=== PATIENT | female | born 1945 | race Caucasian/White ===

== ENCOUNTER 2016-07-10 08:45 | Outpatient (CLI) | payer MEDICARE, OTHER | END 2016-07-10 23:59 | DX: I10 Essential (primary) hypertension (principal) ==

== ENCOUNTER 2017-06-28 15:03 | Outpatient (CLI) | payer MEDICARE, OTHER ==
[2017-06-28 15:28] LABS: CREATININE 0.8 mg/dL (0.4-1.0)
== END 2017-06-28 15:04 | disposition home or self-care (01) ==
LOC: LAB 15:03
PROVIDERS: ATTEND Podiatrist
DX: Z01.818 Encounter for other preprocedural examination (principal)
CPT/HCPCS: 36415; 82565; 85014; 93005

== ENCOUNTER 2017-10-24 08:00 | Outpatient (CLI) | payer MEDICARE, OTHER ==
[2017-10-24 12:47] LABS: BASOPHILS # (AUTO) 0.1 10^3/uL (0.0-0.1); BASOPHILS % (AUTO) 1.1 %; EOSINOPHILS # (AUTO) 0.5 10^3/uL (0.0-0.7); EOSINOPHILS % (AUTO) 5.9 %; HGB - HEMOGLOBIN 14.4 g/dL (12.0-16.0); LYMPHOCYTES # (AUTO) 2.2 10^3/uL (1.5-3.5); LYMPHOCYTES % (AUTO) 28.7 %; MEAN CORPUSCULAR HEMOGLOBIN 31.4 pg (27.0-31.0); MEAN CORPUSCULAR HGB CONC 34.3 g/dL (32.0-36.0); MEAN CORPUSCULAR VOLUME 91.6 fL (81.0-99.0); MEAN PLATELET VOLUME 8.3 fL (7.9-10.8); MONOCYTES # (AUTO) 0.6 10^3/uL (0.0-1.0); MONOCYTES % (AUTO) 7.7 %; NEUTROPHILS # (AUTO) 4.4 10^3/uL (1.5-6.6); NEUTROPHILS % (AUTO) 56.6 %; PLT - PLATELET COUNT 195 10^3/uL (130-450); RED BLOOD COUNT 4.58 10^6/uL (4.20-5.40); RED CELL DISTRIBUTION WIDTH 13.7 % (12.0-15.0); WHITE BLOOD COUNT 7.7 x10^3/uL (4.8-10.8)
[2017-10-24 13:20] LABS: ALBUMIN 4.2 g/dL (3.2-5.5); ALBUMIN/GLOBULIN RATIO 1.3 (1.0-2.2); CALCIUM 9.1 mg/dL (8.5-10.3); CREATININE 0.7 mg/dL (0.4-1.0); TOTAL PROTEIN 7.4 g/dL (6.7-8.2)
== END 2017-10-24 08:01 ==
LOC: LAB.WCP 08:00
PROVIDERS: ATTEND Family Medicine
DX: I10 Essential (primary) hypertension (principal); R94.6 Abnormal results of thyroid function studies; R53.83 Other fatigue
CPT/HCPCS: 36415; 80053; 84443; 85025

== ENCOUNTER 2018-06-05 08:25 | Outpatient (CLI) | payer MEDICARE, OTHER ==
[2018-06-05 13:56] LABS: BASOPHILS # (AUTO) 0.1 10^3/uL (0.0-0.1); BASOPHILS % (AUTO) 1.1 %; EOSINOPHILS # (AUTO) 0.5 10^3/uL (0.0-0.7); EOSINOPHILS % (AUTO) 5.7 %; HGB - HEMOGLOBIN 14.4 g/dL (12.0-16.0); LYMPHOCYTES # (AUTO) 2.7 10^3/uL (1.5-3.5); LYMPHOCYTES % (AUTO) 31.8 %; MEAN CORPUSCULAR HEMOGLOBIN 31.4 pg (27.0-31.0); MEAN CORPUSCULAR HGB CONC 34.2 g/dL (32.0-36.0); MEAN CORPUSCULAR VOLUME 91.8 fL (81.0-99.0); MEAN PLATELET VOLUME 7.9 fL (7.9-10.8); MONOCYTES # (AUTO) 0.6 10^3/uL (0.0-1.0); MONOCYTES % (AUTO) 7.4 %; NEUTROPHILS # (AUTO) 4.6 10^3/uL (1.5-6.6); PLT - PLATELET COUNT 220 10^3/uL (130-450); RED BLOOD COUNT 4.59 10^6/uL (4.20-5.40); RED CELL DISTRIBUTION WIDTH 13.5 % (12.0-15.0); WHITE BLOOD COUNT 8.5 x10^3/uL (4.8-10.8)
[2018-06-05 14:34] LABS: ALBUMIN 4.3 g/dL (3.2-5.5); ALBUMIN/GLOBULIN RATIO 1.2 (1.0-2.2); ALKALINE PHOSPHATASE 106 IU/L (42-121); ALT ALANINE AMINOTRANSFERASE 54 IU/L (10-60); AST ASPARTATE AMINOTRANSFERASE 56 IU/L (10-42); BILIRUBIN,TOTAL 0.3 mg/dL (0.2-1.0); BUN - BLOOD UREA NITROGEN 17 mg/dL (6-20); CALCIUM 9.3 mg/dL (8.5-10.3); CARBON DIOXIDE - CO2 28 mmol/L (21-32); CHLORIDE 106 mmol/L (101-111); CHOL/HDL RATIO 3.5 (<4.4); CHOLESTEROL 176 mg/dL; CREATININE 0.9 mg/dL (0.4-1.0); GFR - MDRD 62 (>89); GLUCOSE 96 mg/dL (70-100); HDL CHOLESTEROL 51 mg/dL; LDL CHOLESTEROL,CALCULATED 101 mg/dL; SODIUM 143 mmol/L (135-145); VLDL CHOLESTEROL 24 mg/dL
== END 2018-06-05 23:59 | disposition home or self-care (01) ==
LOC: LAB.WCP 08:25
PROVIDERS: ATTEND Family Medicine
DX: R74.8 Abnormal levels of other serum enzymes (principal); I10 Essential (primary) hypertension; R94.6 Abnormal results of thyroid function studies
CPT/HCPCS: 36415; 80053; 80061; 83721; 84443; 85025

== ENCOUNTER 2018-06-17 08:07 | Outpatient (CLI) | payer MEDICARE, OTHER ==
--- NOTE | 2018-06-17 10:07 | DEXA Report ---
Reason: POSTMENOPAUSAL STATUS Procedure Date: 06/17/2018 Accession Number: [id number] / [id number] Procedure: DEX - Dexa Spine and/or Hip CPT Code: FULL RESULT: EXAM: Dexa Spine and/or Hip DATE: 06/17/2018 9:45 AM CLINICAL HISTORY: POSTMENOPAUSAL STATUS TECHNIQUE: Dual energy x-ray absorptiometry (DXA) was performed on a Desktime System. Regions measured are the AP Spine, femoral neck, and if needed forearm. COMPARISON: None. In accordance with the International Society for Clinical Densitometry (ISCD) guidelines, data from previous exams may be reanalyzed using current recommendations and techniques. This is done to allow a more accurate basis for comparison with the current study. FINDINGS: The data for the lumbar spine is as follows: BMD (g/cm/cm) T-SCORE Z-SCORE REGION L1 1.665 4.5 5.5 L2 1.654 3.8 4.8 L3 2.166 8.0 9.1 L4 2.271 8.9 9.9 TOTAL 1.955 6.5 7.5 NOTE: All evaluable vertebrae are used for classification The data for the hip is as follows: BMD (g/cm/cm) T-SCORE Z-SCORE REGION Neck 1.054 0.1 1.5 TOTAL 1.215 1.6 2.7 NOTE: The femoral neck or total proximal femur, whichever is lowest, is used for classification. IMPRESSION: THE WHO CLASSIFICATION BASED ON THE INTERNATIONAL REFERENCE STANDARD IS NORMAL. THE FRACTURE RISK IS NOT INCREASED. RECOMMENDATION: Patients with diagnosis of osteoporosis or osteopenia should have regular bone mineral density assessment. For those eligible for Medicare, routine testing is allowed once every 2 years. Testing frequency can be increased for patients who have rapidly progressing disease or for those who are receiving medical therapy to restore bone mass. COMMENT: World Health Organization (WHO) definitions for osteoporosis and osteopenia: NORMAL BMD: T-score at -1.0 or higher, fracture risk is low OSTEOPENIA BMD: T-score between -1.0 and -2.5, fracture risk is increased. OSTEOPOROSIS BMD: T-score at -2.5 or lower, fracture risk is high. National Osteoporosis Foundation recommends: 1. Obtain adequate dietary calcium (at least 1200 mg per day) and vitamin D (400-800 international units per day). 2. Participate, as appropriate, in regular weightbearing and muscle-strengthening exercise. 3. Avoid tobacco use and reduce alcohol and caffeine intake. 4. For more detailed information see the website at www.NOF.org.
== END 2018-06-17 08:08 | disposition home or self-care (01) ==
LOC: DI 08:07
PROVIDERS: ATTEND Family Medicine
DX: Z78.0 Asymptomatic menopausal state (principal)
CPT/HCPCS: 77080

== ENCOUNTER 2018-08-18 09:41 | Outpatient (CLI) | payer MEDICARE, OTHER ==
--- NOTE | 2018-08-19 10:31 | Mammography Report ---
Reason: SCREENING MAMMO Procedure Date: 08/18/2018 Accession Number: [id number] / [id number] Procedure: FABIENNE - Screening Mammo w/Vikram CPT Code: FULL RESULT: EXAM: Screening Mammo w/Vikram DATE: 08/18/2018 10:12 AM CLINICAL HISTORY: Routine screening. No reported personal history of breast cancer. History of breast cancer in maternal grandmother, age unknown. Prior history of benign right breast biopsy. TECHNIQUE: Bilateral CC and MLO views were obtained. COMPARISON: 05/30/2016 through 11/14/2011 FINDINGS: The breasts demonstrate scattered fibroglandular densities bilaterally. Bilateral breasts: There are no suspicious masses, calcifications or areas of distortion. Stable biopsy marker in the 12:00 right breast anterior depth. IMPRESSION: Benign findings RECOMMENDATION: Routine annual screening unless otherwise clinically indicated. BI-RADS CATEGORY 2: Benign findings STANDARD QUALIFYING STATEMENTS: 1. This examination was not reviewed with the aid of Computer-Aided Detection (CAD). 2. A negative or benign imaging report should not preclude biopsy if clinically suspicious findings are present. 3. Dense breasts may obscure an underlying neoplasm. 4. This examination was reviewed with the aid of 3D breast imaging (tomosynthesis).
== END 2018-08-18 09:42 | disposition home or self-care (01) ==
LOC: DI 09:41
DX: Z12.31 Encounter for screening mammogram for malignant neoplasm of breast (principal); Z80.3 Family history of malignant neoplasm of breast
CPT/HCPCS: 77063; 77067

== ENCOUNTER 2019-08-25 08:28 | Outpatient (CLI) | payer MEDICARE, OTHER ==
--- NOTE | 2019-08-25 10:15 | Mammography Report ---
Reason: ROUTINE MAMMO Procedure Date: 08/25/2019 Accession Number: [id number] / [id number] Procedure: MGN - Screening Mammo w/Vikram CPT Code: Final Report FULL RESULT: EXAM: Screening Mammo w/Vikram DATE: 08/25/2019 9:01 AM CLINICAL HISTORY: Nulliparous patient for routine screening. History of benign right breast biopsy. TECHNIQUE: (B) - Bilateral CC and MLO views were obtained. COMPARISON: 08/18/2018, 05/17/2016, 08/02/2014, 05/26/2013 PARENCHYMAL PATTERN: (F) - The breasts demonstrate diffuse fatty replacement bilaterally. FINDINGS: No significant interval change. There are no suspicious masses, calcifications, or areas of distortion. IMPRESSION: Negative examination. BI-RADS category 1. RECOMMENDATION: (ANNUAL) - Recommend routine annual screening mammography. BI-RADS CATEGORY: (1) - Negative. STANDARD QUALIFYING STATEMENTS: 1. This examination was not reviewed with the aid of Computer-Aided Detection (CAD). 2. A negative or benign imaging report should not preclude biopsy if clinically suspicious findings are present. 3. Dense breasts may obscure an underlying neoplasm. 4. This examination was reviewed with the aid of 3D breast imaging (tomosynthesis).
== END 2019-08-25 08:29 | disposition home or self-care (01) ==
LOC: DI.N 08:28
DX: Z12.31 Encounter for screening mammogram for malignant neoplasm of breast (principal)
CPT/HCPCS: 77063; 77067

== ENCOUNTER 2019-10-27 08:43 | Outpatient (CLI) | payer MEDICARE, OTHER ==
--- NOTE | 2019-10-27 17:49 | Ultrasound Report ---
Reason: PERIPHERAL ARTERY DISEASE Procedure Date: 10/27/2019 Accession Number: [id number] / [id number] Procedure: US - Duplex Lwr Ext Arterial Bilat CPT Code: Final Report FULL RESULT: EXAM: BILATERAL LOWER EXTREMITY ARTERIAL DOPPLER ULTRASOUND. EXAM DATE: 10/27/2019 09:54 AM. CLINICAL HISTORY: Peripheral artery disease. COMPARISON: None. TECHNIQUE: Real-time sonographic vascular imaging was performed by the sapphire stylus grinder, utilizing color-flow, Doppler flow, and spectral analysis. Multiple exhibit display representative static images were saved for review. FINDINGS: Right Leg: DO ALL OPERATOR: PSV 96 cm/sec. Triphasic waveform. PSFA: PSV 98 cm/sec. Triphasic waveform. MSFA: PSV 70 cm/sec. Triphasic waveform. DSFA: PSV 76 cm/sec. Triphasic waveform. PFA: PSV 70 cm/sec. Biphasic waveform. POP: PSV 70 cm/sec. Triphasic waveform. BROCK: PSV 49 cm/sec. Biphasic waveform. ASBESTOS HAZARD ABATEMENT WORKER: PSV 53 cm/sec. Biphasic waveform. PER: PSV 63 cm/sec. Triphasic waveform. DPA: PSV 37 cm/sec. Monophasic waveform. Left Leg: DO ALL OPERATOR: PSV 73 cm/sec. Biphasic waveform. PSFA: PSV 78 cm/sec. Triphasic waveform. MSFA: PSV 70 cm/sec. Triphasic waveform. DSFA: PSV 60 cm/sec. Triphasic waveform. PFA: PSV 58 cm/sec. Biphasic waveform. POP: PSV 54 cm/sec. Triphasic waveform. BROCK: PSV 23 cm/sec. Biphasic waveform. ASBESTOS HAZARD ABATEMENT WORKER: PSV 60 cm/sec. Biphasic waveform. PER: PSV 116 cm/sec. Triphasic waveform. DPA: PSV 27 cm/sec. Monophasic waveform. IMPRESSION: No evidence for hemodynamically significant stenosis. See above. RADIA
== END 2019-10-27 08:44 | disposition home or self-care (01) ==
LOC: DI 08:43
PROVIDERS: ATTEND Family Medicine
DX: I73.9 Peripheral vascular disease, unspecified (principal)
CPT/HCPCS: 93925

== ENCOUNTER 2020-01-26 16:45 | Observation (INO) | payer MEDICARE, OTHER ==
--- NOTE | 2020-01-26 17:17 | ED Physician Documentation ---
History of Present Illness - Stated complaint Stated Complaint: SLURRED SPEECH - Chief complaint Chief Complaint: General - Additonal information Additional information: 74-year-old female presents to the emergency department for evaluation of slurred speech that was noted at approximately 9 this morning. She lives alone and does not remember the last time that she spoke normally but when her friend picked her up to go into town they both noted that her speech was slurred and she felt like her tongue was fat. She had no facial droop, no arm or leg weakness, she has had no fevers or headaches. She does report that 2 nights ago she did have some chest pain. She has no history of previous CVA, TIA. in addition to slurred speech she does report some difficulty with word finding Past medical history most significant for hypertension and rheumatoid arthritis. Meds include amlodipine, methotrexate and Plaquenil. She is a non-smoker. Denies daily alcohol use. No illicit substance use. Review of Systems Constitutional: denies: Fever, Chills Eyes: denies: Loss of vision, Decreased vision Ears: denies: Loss of hearing, Ear pain Nose: denies: Rhinorrhea / runny nose, Congestion Throat: denies: Dental pain / toothache, Oral lesions / sores Cardiac: reports: Chest pain / pressure. denies: Palpitations, Pedal edema, Calf pain Respiratory: denies: Dyspnea, Cough, Hemoptysis, Wheezing GI: denies: Abdominal Pain, Abdominal Swelling, Nausea, Vomiting, Constipation, Diarrhea : denies: Dysuria, Frequency Skin: denies: Rash, Lesions Musculoskeletal: denies: Neck pain, Back pain Neurologic: reports: Difficulty speaking. denies: Focal weakness, Numbness, Syncope, Seizure, Confused, Altered mental status, Headache, Head injury Psychiatric: reports: Depressed, Suicidal PD PAST MEDICAL HISTORY - Past Medical History Musculoskeletal: Rheumatoid arthritis - Allergies Allergies/Adverse Reactions: Allergies Allergy/AdvReac Type Severity Reaction Status Date / Time Sulfa (Sulfonamide Allergy Hives Verified 01/26/20 16:54 Antibiotics) PD ED PE EXPANDED - General General: Alert, No acute distress, Well developed/nourished. No: Anxious, In Pain, In distress - HEENT HEENT: Atraumatic, PERRL, EOMI - Eyes Eyes: PERRL, Normal accommodation - Neck Neck: Supple w/out meningeal sx, No tenderness - Cardiac Cardiac: Regular Rate, Radial strong equal, Femoral strong equal, Pedal strong equal, Cap refill < 2 sec. No: Murmur Present - Respiratory Respiratory: Clear to ausultation micaela. No: Distress, Labored - Abdomen Abdomen: Normal Bowel sounds. No: Tender to palpation - Neuro Neuro: Alert and Oriented X 3, CN deficit (hypoglossal; slurred speech), PERRL, Cerebellar nl, Normal gait, Normal finger nose. No: Weakness, Abnormal sensation, CNII-XII intact, Dyscongugate gaze, Nystagmus, Normal speech - GCS Eye Opening: Spontaneous Motor: Obeys Commands Verbal: Oriented Total: 15 Results - Vitals Vitals: Vital Signs - 24 hr 01/26/20 01/26/20 01/26/20 16:54 17:10 17:37 Temperature 36.8 C Heart Rate 75 67 66 Respiratory 16 15 14 Rate Blood Pressure 182/96 H 148/75 H 108/83 H O2 Saturation 95 97 97 01/26/20 01/26/20 18:06 18:30 Temperature Heart Rate 59 L 62 Respiratory 17 18 Rate Blood Pressure 139/63 H 139/63 H O2 Saturation 98 96 Oxygen O2 Source Room air - EKG (time done) 1649 Rate: Rate (enter#) (75) Rhythm: NSR [place]: Normal Intervals: Normal MO QRS: LVH Ischemia: Normal ST segments, Q waves (anterior leads; ? LVH) Compare to prior EKG: Unchanged from prior EKG Computer interpretation: Agree with computer - Labs Labs: Laboratory Tests 01/26/20 01/26/20 01/26/20 17:10 17:10 17:35 WBC 9.8 RBC 4.48 Hgb 14.2 Hct 40.8 MCV 91.1 MCH 31.7 H MCHC 34.8 RDW 13.2 Plt Count 215 MPV 9.7 Neut # (Auto) 6.3 Lymph # (Auto) 2.4 [place] # (Auto) 0.6 Eos # (Auto) 0.4 Baso # (Auto) 0.1 Absolute Nucleated RBC 0.00 Nucleated RBC % 0.0 Sodium 135 Potassium 3.7 Chloride 100 L Carbon Dioxide 26 Anion Gap 9.0 BUN 16 Creatinine 0.7 Estimated GFR (MDRD) 82 L Glucose 102 H Calcium 9.4 Total Bilirubin 0.6 AST 37 ALT 30 Alkaline Phosphatase 70 Troponin I High Sens 3.5 Total Protein 7.3 Albumin 4.5 Globulin 2.8 Albumin/Globulin Ratio 1.6 Lipase 38 - Rads (name of study) CXR Radiology: Final report received (sNo acute cardiopulmonary finding) CT angio neck Radiology: Final report received (No hemodynamically significant stenosis can be seen within the arteries of the neck. Relatively prominent cervical spine degenerative changes noted.) CT angio head Radiology: Final report received (Focal moderate grade stenosis within the superior cavernous portion of the right internal carotid artery no other stenosis occlusion or aneurysm. No acute intracranial findings on the noncontrast study) PD MEDICAL DECISION MAKING - ED course Complexity details: reviewed old records, reviewed results, re-evaluated patient, considered differential, d/w patient ED course: 74-year-old female presents to the emergency department with 8 hours of slurred speech and some difficulty with word finding. She is well outside the 4-hour window. However we will proceed with emergent CT imaging to include angiography of her head and neck. Screening labs are also pending. - ECG is noted to be sinus rhythm. No fibrillation or ectopy. High-sensitivity troponin is negative. The rest of her screening labs are also unremarkable. - CT angios of the head and neck shows no obvious bleeds or worrisome findings. There is a very focal moderate-grade stenosis of the right ICA near the cavernous section of the ICA. This was discussed with Dr. Ricardo Manning the nighttime hospitalist. He has agreed to admit her under observation for CVA. He has asked that I have the images forwarded to [facility] and he will speak with neurology there but is not requesting me to do that at this time. - Over the time that the patient has been here in the emergency department I do note that her slurred speech has improved somewhat. She agrees to admission. In addition she has no other focal neuro deficits. No facial droop ataxia arm or leg weakness. I have ordered 325 of aspirin. Further care to be dictated by the nighttime hospitalist Departure - Departure Disposition: ED Place in Observation Clinical Impression: Slurred speech Condition: Serious
[2020-01-26 17:18] LABS: BASOPHILS # (AUTO) 0.1 10^3/uL (0.0-0.1); BASOPHILS % (AUTO) 0.7 %; EOSINOPHILS # (AUTO) 0.4 10^3/uL (0.0-0.7); EOSINOPHILS % (AUTO) 3.9 %; HGB - HEMOGLOBIN 14.2 g/dL (12.0-16.0); LYMPHOCYTES # (AUTO) 2.4 10^3/uL (1.5-3.5); LYMPHOCYTES % (AUTO) 24.1 %; MEAN CORPUSCULAR HEMOGLOBIN 31.7 pg (27.0-31.0); MEAN CORPUSCULAR HGB CONC 34.8 g/dL (32.0-36.0); MEAN CORPUSCULAR VOLUME 91.1 fL (81.0-99.0); MEAN PLATELET VOLUME 9.7 fL (7.9-10.8); MONOCYTES # (AUTO) 0.6 10^3/uL (0.0-1.0); MONOCYTES % (AUTO) 6.3 %; NEUTROPHILS # (AUTO) 6.3 10^3/uL (1.5-6.6); NEUTROPHILS % (AUTO) 64.6 %; PLT - PLATELET COUNT 215 10^3/uL (130-450); RED BLOOD COUNT 4.48 10^6/uL (4.20-5.40); RED CELL DISTRIBUTION WIDTH 13.2 % (12.0-15.0); WHITE BLOOD COUNT 9.8 x10^3/uL (4.8-10.8)
[2020-01-26] MEDS ORDERED: IOVERSOL 320 100 ML VIAL IVP ONE ×2 (17:34→18:02)
[2020-01-26 18:04] LABS: ALBUMIN 4.5 g/dL (3.2-5.5); ALBUMIN/GLOBULIN RATIO 1.6 (1.0-2.2); BILIRUBIN,TOTAL 0.6 mg/dL (0.2-1.0); CALCIUM 9.4 mg/dL (8.5-10.3); CREATININE 0.7 mg/dL (0.4-1.0); TOTAL PROTEIN 7.3 g/dL (6.7-8.2)
--- NOTE | 2020-01-26 18:13 | CT Report ---
PROCEDURE: ANGIO HEAD W/WO INDICATIONS: L sided facial droop CONTRAST: IV CONTRAST: Optiray 320 ml: 80 PO CONTRAST: *NO PO CONTRAST TECHNIQUE: Precontrast 4.5 mm thick angled axial sections acquired from the foramen magnum to the vertex. Afte r the administration of intravenous contrast, 1 mm thick sections acquired through the [place] of [place] is. Postcontrast 4.5 mm thick sections then re-acquired from the foramen magnum to the vertex. 3-di mensional klivkwz-zqnwsllgr-fpvlitmgzo (MIP) and/or volume rendering reformats were acquired of the c entral intracranial vasculature. For radiation dose reduction, the following was used: automated ex posure control, adjustment of mA and/or kV according to patient size. COMPARISON: None. FINDINGS: Image quality: Excellent. Anterior circulation: A focal moderate grade stenosis is present within the superior cavernous portio n of the right internal carotid artery (series 13/image 38). The bilateral internal carotid arteries demonstrate otherwise normal course and caliber. The flow within the paired anterior cerebral arterie s is normal and symmetric. The flow within the middle cerebral arteries is normal and symmetric. Th e anterior communicating artery is seen. No aneurysms are seen. Posterior circulation: Visualized portions of the vertebral arteries demonstrate normal caliber, and join to form a normal appearing basilar artery. Flow within the posterior cerebral arteries is norm al and symmetric. No aneurysms are seen. CSF spaces: Ventricles are normal in size and shape. Basal cisterns are patent. No extra-axial flu id collections. Brain: No midline shift. No intracranial bleeds or masses. Cavazos-white matter interface appears int act. Skull and face: Calvarium and facial bones appear intact, without suspicious lesions. Sinuses: Visualized sinuses and mastoids are clear. IMPRESSION: 1. Focal moderate grade stenosis within the superior cavernous portion of the right internal carotid artery. No other stenosis, occlusion, or aneurysm. 2. No acute intracranial findings on the noncontrast study. Reviewed by: Danielle Wright MD on 01/26/2020 6:12 PM PDT Approved by: Danielle Wright MD on 01/26/2020 6:12 PM PDT Station ID: [id number]
--- NOTE | 2020-01-26 18:14 | XRAY Report ---
PROCEDURE: Chest 1 View X-Ray INDICATIONS: Chest Pain TECHNIQUE: One view of the chest was acquired. COMPARISON: None FINDINGS: Surgical changes and devices: None. Lungs and pleura: No pleural effusions or pneumothorax. Lungs are clear. Mediastinum: Mediastinal contours appear normal. Heart size is normal. Bones and chest wall: No suspicious bony lesions. Overlying soft tissues appear unremarkable. IMPRESSION: No acute cardial pulmonary findings. Reviewed by: Danielle Wright MD on 01/26/2020 6:13 PM PDT Approved by: Danielle Wright MD on 01/26/2020 6:13 PM PDT Station ID: [id number]
--- NOTE | 2020-01-26 18:18 | CT Report ---
PROCEDURE: ANGIO NECK W INDICATIONS: L sided facial droop, L neck pain CONTRAST: IV CONTRAST: Optiray 320 ml: 80 PO CONTRAST: *NO PO CONTRAST TECHNIQUE: After the administration of intravenous contrast, 1.5 mm axial sections acquired from the aortic arch to the [place] of [place]. Coronal 3-D maximum intensity projection (MIP) and/or volume rendering ref ormats were then performed. For radiation dose reduction, the following was used: automated exposur e control, adjustment of mA and/or kV according to patient size. COMPARISON: Correlation is made with the accompanying head CT angiogram, 01/26/2020 FINDINGS: Image quality: Excellent. Carotid system: The great vessels demonstrate a conventional anatomy as they arise from the aortic a rch. The origins of the common carotid arteries appear patent. The common carotid arteries demonstr ate normal calibers and courses. The bifurcation regions appear normal bilaterally. The internal ca rotid arteries demonstrate normal caliber and course. Posterior circulation: The origins of the vertebral arteries appear patent. The more superior porti ons of the vertebral arteries demonstrate normal course and caliber. They join to form a normal appe aring basilar artery. Soft tissues: Visualized neck soft tissues demonstrate no suspicious abnormalities. The thyroid gla nd is normal in size. Bones: No suspicious bony lesions. Visualized cervical spine appears normally aligned. 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 Moderate to prominent cervical spine degenerative changes are seen, with at least moderate disc space narrowing at C4-C5 with moderate to severe disc space narrowing at C5-C6 and C6-C7. Endplate irregul arity and sclerosis are seen, which are most prominent at C5-C6. IMPRESSION: No hemodynamically significant stenosis can be seen within the arteries of the neck. Relatively prominent cervical spine degenerative changes noted. The estimate of stenosis included in the report of the imaging study was calculated using the NASCET method Reviewed by: Dayton Waterman MD on 01/26/2020 5:17 PM YENNI Approved by: Dayton Waterman MD on 01/26/2020 5:17 PM YENNI Station ID: [id number]
[2020-01-26] MEDS ORDERED: ASPIRIN CHEW 81 MG TABLET PO STA (18:27)
[2020-01-26] MEDS ORDERED: ONDANSETRON 4 MG/2 ML VIAL IVP PRN (19:12)
[2020-01-26] MEDS ORDERED: ACETAMINOPHEN 325 MG TABLET PO PRN (19:12)
[2020-01-26] MEDS ORDERED: SODIUM CHLORIDE FLUSH 0.9% 10 ML SYRINGE IVP PRN (19:12)
--- NOTE | 2020-01-26 19:21 | HISTORY & PHYSICAL EXAMINATION ---
Chief Complaint - Chief Complaint Chief Complaint: Slurred speech. History of Present Illness - Admitted From Admitted From:: Home - History Obtained From Records Reviewed: Yes History obtained from: Patient, ER Physician, EMR - History of Present Illness HPI Comment/Other: This is a very pleasant 74-year-old female with a past medical history signi ficant for rheumatoid arthritis and hypertension who presents today after she noticed slurred speech at around 9 AM this morning. She is unsure of when her symptoms started as she lives alone but when she spoke with her neighbor at 9 AM, she realized her speech was slurred. She went about with her errands and she drove to [facility] and return to [place] in the afternoon when she called her primary care provider who asked her to go to emergency department for further evaluation. She states her slurred speech has improved but is still present. She reports no headache, blurry vision, any upper or lower extremity weakness. She denies any numbness or tingling. She reports no prior history of stroke or TIA. She does not take a baby aspirin. She only takes amlodipine for hypertension as well as methotrexate and hydroxychloroquine for rheumatoid arthritis. She took her methotrexate yesterday which she takes on a weekly basis. She is a non-smoker. She reports no prior history of hyperlipidemia or diabetes. In the emergency department, she underwent a CTA of the head which showed a moderate focal stenosis of the superior cavernous portion of the right internal carotid artery. CT of the head was unremarkable. CTA of the neck was also unremarkable. Her EKG reveals a sinus rhythm. Given the above findings, medicine was consulted for admission. I did discuss goals of care the patient she would like to be a full code. She stated she would not want prolonged mechanical ventilation if she were to have a poor prognosis. 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 She has 1 sister who had a stroke. Her 3 other sisters are healt hy. Living arrangement: At home Living Situation: Alone Social History Notes: She lives at home alone but her very close friend lives in a condo next-door. She is a non-smoker. She drinks 1-2 alcoholic beverages a week. 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 - POLST Patient has POLST: No Meds/Allgy - Allergies Allergies/Adverse Reactions: Allergies Allergy/AdvReac Type Severity Reaction Status Date / Time Sulfa (Sulfonamide Allergy Hives Verified 01/26/20 16:54 Antibiotics) Review of Systems - Constitutional Constitutional: denies: Fatigue, Fever, Chills, Malaise, Weakness, Poor appetite - Eyes Eyes: denies: Blurred vision, Vision loss - Ears, Nose & Throat Ears, Nose & Throat: denies: Nasal discharge, Nasal congestion, Sore throat - Cardiovascular Cariovascular: denies: Palpitations, Chest pain, Lightheadedness, Exertional dyspnea, Decr. exercise tolerance - Respiratory Respiratory: denies: Cough, SOB at rest, SOB with exertion - Gastrointestinal Gastrointestinal: denies: Abdominal pain, Nausea, Vomiting - Genitourinary Genitourinary: denies: Dysuria, Frequency, Urgency, Hematuria - Musculoskeletal Musculoskeletal: denies: Muscle pain, Limited range of motion, Muscle weakness - Integumentary Integumentary: denies: Rash - Neurological Neurological: reports: Slurred speech. denies: General weakness, Focal weakness, Headache, Dizziness, Numbness, Memory problems, Pre-existing deficit, Abnormal gait, Incoordination - Hematologic/Lymphatic Hematologic/Lymphatic: denies: Bleeding tendencies - All Other Systems All Other Systems: reports: Reviewed and negative Prior Level of Functionality: She is independent with her ADL's. Exam - Vital Signs Reviewed Vital Signs: Yes Vital Signs: Vital Signs x48h Temp Pulse Resp BP Pulse Ox 01/26/20 18:30 62 18 139/63 H 96 01/26/20 18:06 59 L 17 139/63 H 98 01/26/20 17:37 66 14 108/83 H 97 01/26/20 17:10 67 15 148/75 H 97 01/26/20 16:54 36.8 C 75 16 182/96 H 95 - Physical Exam General Appearance: positive: No acute distress, Alert Eyes Bilateral: positive: Normal inspection, Conjunctivae nml ENT: positive: ENT inspection nml Neck: positive: Nml inspection Respiratory: positive: No respiratory distress. negative: Wheezes, Rales Cardiovascular: positive: Regular rate & rhythm, No murmur. negative: Tachycardia, Bradycardia, Systolic murmur Abdomen: positive: Non-tender, No distention. negative: Tenderness, Guarding, Rebound Skin: positive: No rash, Warm, Dry Extremities: positive: Full ROM, No pedal edema Neurologic/Psychiatric: positive: Oriented x3, CN's nml (2-12), Motor nml, Sensation nml, Slurred/abnml speech, Other (No dysmetria noted. No pronator drift.). negative: Disoriented to person, Disoriented to place, Disoriented to time, Facial droop Conclusion/Plan - Problem List (1) Stroke-like symptoms Conclusion/Plan: She presents with slurred speech with an unknown last normal. Her symptoms are improving but persists. No other focal deficits on exam. CT of the head was unremarkable. CTA of the head showed focal moderate stenosis of the superior cavernous portion of the right internal carotid artery. CTA of the neck was unremarkable. She was given aspirin in the emergency department. We will continue her on aspirin 81 mg daily as well as Lipitor 40 mg in the evening. Will allow for permissive hypertension given her ongoing symptoms. Will obtain echocardiogram. Obtain MRI. Monitor on telemetry. Check A1c and lipid panel. Neurochecks. I did speak with the on-call neurologist discussed the patient's presentation and the CTA findings. They felt it was reasonable to start the patient on 75 mg of Plavix daily for 3 weeks ff her MRI shows lacunar strokes or a very small infarct. If there was concern for an embolic stroke or very large stroke or petechial hemorrhages then they feel that monotherapy with aspirin would be appropriate and to look for atrial fibrillation. At this time, we will keep her on aspirin 81 mg daily and follow-up with MRI tomorrow and will start her on Plavix based off of those findings. (2) Hypertension Conclusion/Plan: We will hold her home antihypertensives to allow for permissive hypertension given she has ongoing symptoms and this could be a stroke not just TIA. (3) Rheumatoid arthritis Conclusion/Plan: Stable. We will continue home medications. - Lab Results Lab results reviewed: Yes Fish Bones: 01/26/20 17:10 01/26/20 17:35 - Diagnostic Imaging Results Diagnostic Imaging Results: positive: Final report reviewed - EKG Results EKG Interpreted Independently: Yes EKG Comparison: Unchanged from prior EKG EKG Findings: Sinus rhythm without ST segment changes. Core Measures - Anticipated LOS I expect patient to be DC'd or transferred within 96 hours.: Yes - Issues Hospital Issues and Management Plan: 74-year-old female with a history of hypertension and her arthritis presents with slurred speech that is persistent. Will place in observation for TIA/stroke work-up including echocardiogram, telemetry, MRI. - DVT/VTE - Prophylaxis VTE/DVT Device ordered at admit?: Yes VTE/DVT Prophylaxis med ordered at admit?: Yes
[2020-01-26 19:38] LABS: CHOLESTEROL 145 mg/dL; HDL CHOLESTEROL 48 mg/dL; LDL CHOLESTEROL,CALCULATED 78 mg/dL; LDL/HDL RATIO 1.6 (<4.4); VLDL CHOLESTEROL 19 mg/dL
[2020-01-26] MEDS ORDERED: ATORVASTATIN 40 MG TABLET PO SCH (21:00)
[2020-01-26] MEDS: SODIUM CHLORIDE FLUSH 0.9% 10 ML SYRINGE IVP SCH (23:33)
[2020-01-27 05:45] LABS: BASOPHILS # (AUTO) 0.1 10^3/uL (0.0-0.1); BASOPHILS % (AUTO) 0.8 %; EOSINOPHILS # (AUTO) 0.4 10^3/uL (0.0-0.7); EOSINOPHILS % (AUTO) 5.6 %; HGB - HEMOGLOBIN 13.7 g/dL (12.0-16.0); LYMPHOCYTES # (AUTO) 2.3 10^3/uL (1.5-3.5); LYMPHOCYTES % (AUTO) 29.9 %; MEAN CORPUSCULAR HEMOGLOBIN 31.9 pg (27.0-31.0); MEAN CORPUSCULAR HGB CONC 34.8 g/dL (32.0-36.0); MEAN CORPUSCULAR VOLUME 91.6 fL (81.0-99.0); MEAN PLATELET VOLUME 9.6 fL (7.9-10.8); MONOCYTES # (AUTO) 0.6 10^3/uL (0.0-1.0); MONOCYTES % (AUTO) 7.9 %; NEUTROPHILS # (AUTO) 4.3 10^3/uL (1.5-6.6); NEUTROPHILS % (AUTO) 55.4 %; PLT - PLATELET COUNT 210 10^3/uL (130-450); RED CELL DISTRIBUTION WIDTH 13.2 % (12.0-15.0); WHITE BLOOD COUNT 7.7 x10^3/uL (4.8-10.8)
[2020-01-27 05:57] LABS: HEMOGLOBIN A1C 0.49 g/dL; HEMOGLOBIN A1C % 5.4 % (4.6-6.2)
[2020-01-27 05:58] LABS: CALCIUM 9.4 mg/dL (8.5-10.3); CREATININE 0.8 mg/dL (0.4-1.0); MAGNESIUM 2.3 mg/dL (1.7-2.8); PHOSPHORUS 4.4 mg/dL (2.5-4.6)
[2020-01-27] MEDS: SODIUM CHLORIDE FLUSH 0.9% 10 ML SYRINGE IVP SCH ×2 (08:19→15:34)
[2020-01-27] MEDS ORDERED: HYDROXYCHLOROQUINE 200 MG TABLET PO SCH (09:00)
[2020-01-27] MEDS ORDERED: ASPIRIN EC 81 MG TABLET PO SCH (09:00)
[2020-01-27] MEDS ORDERED: ENOXAPARIN 40 MG/0.4 ML SYRINGE SUBQ SCH (09:00)
[2020-01-27] MEDS ORDERED: CLOPIDOGREL 75 MG TABLET PO SCH (09:00)
--- NOTE | 2020-01-27 09:07 | PHARMACY PROGRESS NOTE ---
- Best Possible Medication History Admit Date and Time: 01/26/201911 Processed by: Pharmacy Patient Interview: Completed Secondary Source(s): Pharmacy records (PATIENT INTERVIEWED BY FABRIC DESIGNER. PATIENT ABLE TO CONFIRM HOME MEDICATIONS ), Insurance records As the person ultimately responsible for medication therapy, providers are able to order a medication from an existing home medication list in [facility] via the "Reconcile Routine" prior to Confirmation of that medication by it support manager. Such practice is discouraged except when the physician, in their clinical judgment, deems that a medical need exists for a medication without regard to previous use.
--- NOTE | 2020-01-27 12:45 | MRI Report ---
PROCEDURE: Brain W/O INDICATIONS: Neuro deficit. TECHNIQUE: Noncontrast axial T1 spin echo, axial T2 fast spin echo, sagittal and axial FLAIR, coronal T2 fast sp in echo, axial gradient echo, axial diffusion and ADC through the brain. COMPARISON: Correlation is made with head CT and head CT angiogram and neck CT angiogram 01/26/2020. FINDINGS: Image quality: Excellent. CSF Spaces: Basal cisterns are patent. No extra-axial fluid collections. Ventricles are normal in size and shape. Brain: Small foci of abnormal diffusion weighted hyperintensity can be seen within the left basal ga nglia, as on series 906 images 14 and 15. There is associated dark signal seen on the accompanying AD C maps. There is developing increased T2-weighted signal seen at this site. No intracranial masses or hemorrhage. Cavazos/white matter interface is normal. Brainstem appears norm al. Brain parenchymal volume loss is seen. Chronic small vessel ischemic changes are seen. No chron ic ischemic insults. Normal intravascular flow voids are present. Skull and face: Calvarium has normal marrow signal. Orbits appear normal. Sinuses: Moderate mucosal thickening is seen involving the left inferior maxillary sinus. Sinuses an d mastoids are otherwise clear. IMPRESSION: Subacute infarction can be seen involving the left basal ganglia. Age-appropriate brain parenchymal volume loss and chronic small vessel ischemic change can be seen. Reviewed by: Dayton Waterman MD on 01/27/2020 11:43 AM YENNI Approved by: Dayton Waterman MD on 01/27/2020 11:43 AM YENNI Station ID: [id number]
--- NOTE | 2020-01-27 14:47 | Discharge Plan ---
Discharge Plan Problem Reviewed?: Yes Disposition: Home Health Service Condition: Stable Prescriptions: Aspirin EC [Ecotrin] 81 mg PO DAILY #21 tablet Atorvastatin [Lipitor] 40 mg PO QPM #30 tablet Clopidogrel [Plavix] 75 mg PO DAILY #21 tablet Diet: Regular Activity Restrictions: Activity as Tolerated Shower Restrictions: No (fall precaution) Instruction Topics: Clopidogrel Bisulfate Oral tablet, Aspirin ASA chewable tablets, Atorvastatin tablets, Stroke Ischemic, Aphasia Health Concerns: stroke Plan of Treatment: you were found to have slurred speech without other focal neurological deficits. MRI of brain show you have subacute left brain small stroke. Neurologist recommend you have three weeks of Aspirin, Plavix and Lipitor, then switch to Aspirin and Lipitor. Speech therapy is arranged to help you as well. Care Goals: stabilization and improvement of your medical conditions Assessment: discussed the care plan with you, you understood and agreed. Additional Instructions or Follow Up instructions: you may followup with your PCP in one week, followup with neurologist as out-pt. Should your symptoms return or worsen, you may present ER or call 911 for help. Follow-Up Care: Home Health - No Smoking: If you smoke, Please STOP! Call for help. Follow-up with: Andi Soares DO [Primary Care Provider] -
--- NOTE | 2020-01-27 14:56 | DISCHARGE SUMMARY ---
Discharge Summary Admit Date: 01/26/20 Discharge Date: 01/27/20 Discharging Provider: Beni delatorre Primary Care Provider: Dr. Dominique Soares Condition at Discharge: Stable Discharge Disposition: Home Health Service Discharge Facility Name: home - DIAGNOSES Discharge Diagnoses with Status of Each Condition: (1) Stroke MRI of the brain show patient has small subacute Stroke involving left basilar ganglia. She still presents with slurred speech but improved per pt's report. Home speech therapist was arranged for patient. Patient has no other focal neuro deficits. Per neurologist recommendation, patient was prescribed aspirin and Plavix and Lipitor for 3 weeks, then switch to aspirin and Lipitor .other imaging studies including CT of the head, CTA of brain and neck, echo are unremarkable except moderate grade stenosis of right internal carotid, Discussed above information with patient, patient understand. (2) Hypertension stable (3) Rheumatoid arthritis Stable. continue home medications. - [facility] History of Present Illness: refer from Dr. Rodriguez's HPI on 01/26/2020 This is a very pleasant 74-year-old female with a past medical history significant for rheumatoid arthritis and hypertension who presents today after she noticed slurred speech at around 9 AM this morning. She is unsure of when her symptoms started as she lives alone but when she spoke with her neighbor at 9 AM, she realized her speech was slurred. She went about with her errands and she drove to [facility] and return to [place] in the afternoon when she called her primary care provider who asked her to go to emergency department for further evaluation. She states her slurred speech has improved but is still present. She reports no headache, blurry vision, any upper or lower extremity weakness. She denies any numbness or tingling. She reports no prior history of stroke or TIA. She does not take a baby aspirin. She only takes amlodipine for hypertension as well as methotrexate and hydroxychloroquine for rheumatoid arthritis. She took her methotrexate yesterday which she takes on a weekly basis. She is a non-smoker. She reports no prior history of hyperlipidemia or diabetes. In the emergency department, she underwent a CTA of the head which showed a moderate focal stenosis of the superior cavernous portion of the right internal carotid artery. CT of the head was unremarkable. CTA of the neck was also unremarkable. Her EKG reveals a sinus rhythm. Given the above findings, medicine was consulted for admission. I did discuss goals of care the patient she would like to be a full code. She stated she would not want prolonged mechanical ventilation if she were to have a poor prognosis. - HOSPITAL COURSE Hospital Course: Patient was admitted for slurring speech for TIA and stroke evaluation and treatment. MRI of the brain show patient has small subacute Stroke involving lef t basilar ganglia. She still presents with slurred speech but improved per pt's report. Home speech therapist was arranged for patient. Patient has no other focal neuro deficits. Per neurologist recommendation, patient was prescribed aspirin and Plavix and Lipitor for 3 weeks, then switch to aspirin and Lipitor .other imaging studies including CT of the head, CTA of brain and neck, echo are unremarkable except moderate grade stenosis of right internal carotid. Physical therapist and occupational therapist evaluation and treatment for patient. - ALLERGIES Allergies/Adverse Reactions: Allergies Allergy/AdvReac Type Severity Reaction Status Date / Time Sulfa (Sulfonamide Allergy Hives Verified 01/26/20 16:54 Antibiotics) - MEDICATIONS Home Medications: Ambulatory Orders Medication Instructions Recorded Confirmed Ascorbic Acid [Vitamin C] 500 mg PO DAILY 01/27/20 01/27/20 Aspirin EC [Ecotrin] 81 mg PO DAILY #21 tablet 01/27/20 Atorvastatin [Lipitor] 40 mg PO QPM #30 tablet 01/27/20 Cholecalciferol [Vitamin D3] 25 mcg PO DAILY 01/27/20 01/27/20 Clopidogrel [Plavix] 75 mg PO DAILY #21 tablet 01/27/20 Folic Acid 2 mg PO DAILY 01/27/20 01/27/20 Hydroxychloroquine Sulfate 200 mg PO DAILY 01/27/20 01/27/20 Multivitamin/Iron/Folic Acid 1 tab PO DAILY 01/27/20 01/27/20 [Centrum Women Tablet] [place]-3 Fatty Acids [Fish Oil 1,000 mg PO DAILY 01/27/20 01/27/20 Concentrate] amLODIPine [Norvasc] 5 mg PO QPM 01/27/20 01/27/20 metHOTREXate sodium [Methotrexate] 7.5 mg PO Q7D 01/27/20 01/27/20 - PHYSICAL EXAM AT DISCHARGE General Appearance: positive: No acute distress, Alert. negative: Lethargic Eyes Bilateral: positive: Normal inspection, PERRL, No lid inflammation ENT: positive: ENT inspection nml, No signs of dehydration. negative: Purulent nasal drainage Neck: positive: Nml inspection, Thyroid nml, Trachea midline. negative: T hyromegaly, Stiff neck, Tracheal deviation Respiratory: positive: Chest non-tender, No respiratory distress, Breath sounds nml. negative: Wheezes, Rales, Rhonchi Cardiovascular: positive: Regular rate & rhythm, No murmur. negative: Tachycardia, Bradycardia, Systolic murmur, Diastolic murmur Peripheral Pulses: positive: 2+ Abdomen: positive: Non-tender, No organomegaly, Nml bowel sounds, No distention. negative: Tenderness, Guarding, Rebound Back: positive: Nml inspection. negative: CVA tenderness (R), CVA tenderness (L) Skin: positive: Color nml, No rash, Warm, Dry. negative: Cyanosis, Diaphoresis, Pallor Extremities: positive: Non-tender, Full ROM, Nml appearance. negative: Calf tenderness, Elie's sign/cords Neurologic/Psychiatric: positive: Oriented x3, Motor nml, Sensation nml, M ood/affect nml, Slurred/abnml speech. negative: Weakness, Sensory loss, Facial droop, Depressed mood/affect - LABS Result Diagrams: 01/27/20 05:00 01/27/20 05:00 - FOLLOW UP Follow Up: you were found to have slurred speech without other focal neurological deficits. MRI of brain show you have subacute left brain small stroke. Neurologist recommend you have three weeks of Aspirin, Plavix and Lipitor, then switch to Aspirin and Lipitor. Speech therapy is arranged to help you as well. you may followup with your PCP in one week, followup with neurologist as out-pt. Should your symptoms return or worsen, you may present ER or call 911 for help. - TIME SPENT Time Spent in Discharge (Minutes): 30
[2020-01-27 15:34] VITALS: BP 142/94
[2020-01-28] MEDS ORDERED: CLOPIDOGREL 75 MG TABLET PO SCH (09:00)
== END 2020-01-27 15:35 | disposition home health service (06) ==
LOC: ED 16:45 → MS2 19:12
PROVIDERS: ADMIT Internal Medicine; ATTEND Nurse Practitioner Gerontology
DX: I63.9 Cerebral infarction, unspecified (principal); R47.81 Slurred speech; R47.01 Aphasia; I65.21 Occlusion and stenosis of right carotid artery; I10 Essential (primary) hypertension; M06.9 Rheumatoid arthritis, unspecified
CPT/HCPCS: 36415; 70496; 70498; 70551; 71045; 80048; 80053; 80061; 83036; 83690; 83735; 84100; 84484; 85025; 93005; 93306; 96372; 97161; 97165; 99284; 99285; A9270; G0378; J1650; Q9967; 83721

== ENCOUNTER 2020-02-11 23:04 | Emergency (ER) | payer MEDICARE, OTHER ==
[2020-02-12 00:27] LABS: BASOPHILS # (AUTO) 0.1 10^3/uL (0.0-0.1); BASOPHILS % (AUTO) 0.9 %; EOSINOPHILS # (AUTO) 0.5 10^3/uL (0.0-0.7); EOSINOPHILS % (AUTO) 4.1 %; HGB - HEMOGLOBIN 13.6 g/dL (12.0-16.0); LYMPHOCYTES # (AUTO) 2.7 10^3/uL (1.5-3.5); LYMPHOCYTES % (AUTO) 24.5 %; MEAN CORPUSCULAR HEMOGLOBIN 31.9 pg (27.0-31.0); MEAN CORPUSCULAR HGB CONC 34.7 g/dL (32.0-36.0); MEAN CORPUSCULAR VOLUME 91.8 fL (81.0-99.0); MONOCYTES # (AUTO) 0.7 10^3/uL (0.0-1.0); MONOCYTES % (AUTO) 6.6 %; NEUTROPHILS % (AUTO) 63.6 %; PLT - PLATELET COUNT 220 10^3/uL (130-450); RED BLOOD COUNT 4.27 10^6/uL (4.20-5.40)
[2020-02-12 00:36] LABS: ALBUMIN 4.4 g/dL (3.2-5.5); ALBUMIN/GLOBULIN RATIO 1.5 (1.0-2.2); BILIRUBIN,TOTAL 0.8 mg/dL (0.2-1.0); CALCIUM 9.3 mg/dL (8.5-10.3); CREATININE 0.7 mg/dL (0.4-1.0); TOTAL PROTEIN 7.4 g/dL (6.7-8.2)
--- NOTE | 2020-02-12 00:39 | ED Physician Documentation ---
History of Present Illness - Stated complaint Stated Complaint: DIZZY - Chief complaint Chief Complaint: Neuro - History obtained from History obtained from: Patient - History of Present Illness Timing: Enter time (22:30), Today Pain level max: 0 Pain level now: 0 Improved by: nothing Worsened by: no exacerbating factors - Additonal information Additional information: c/o dizziness (per patient) since 10:30 PM tonight. no specific inciting event nor exacerbating or ameliorating factors. denies similar previous symptoms, but is concerned due to recent CVA. By the time of this HPI, she says the dizziness has nearly resolved. she says the dizziness is not a sensation of movement or spinning, but cannot otherwise describe it. she denies weakness, denies numbness. she exhibits some expressive aphasia which she has had since the CVA and she says has gradually been improving Review of Systems Constitutional: reports: Reviewed and negative Eyes: reports: Reviewed and negative Ears: reports: Loss of hearing (chronic). denies: Ear pain Cardiac: reports: Reviewed and negative Respiratory: reports: Reviewed and negative GI: reports: Reviewed and negative Neurologic: reports: Reviewed and negative PD PAST MEDICAL HISTORY - Past Medical History Past Medical History: Yes Cardiovascular: Hypertension Respiratory: None Neuro: None Endocrine/Autoimmune: None GI: None CODIFIER: None HEENT: None Psych: None Musculoskeletal: Rheumatoid arthritis Derm: None - Past Surgical History Past Surgical History: No - Present Medications Home Medications: Ambulatory Orders Medication Instructions Recorded Confirmed Ascorbic Acid [Vitamin C] 500 mg PO DAILY 01/27/20 01/27/20 Aspirin EC [Ecotrin] 81 mg PO DAILY #21 tablet 01/27/20 Atorvastatin [Lipitor] 40 mg PO QPM #30 tablet 01/27/20 Cholecalciferol [Vitamin D3] 25 mcg PO DAILY 01/27/20 01/27/20 Clopidogrel [Plavix] 75 mg PO DAILY #21 tablet 01/27/20 Folic Acid 2 mg PO DAILY 01/27/20 01/27/20 Hydroxychloroquine Sulfate 200 mg PO DAILY 01/27/20 01/27/20 Multivitamin/Iron/Folic Acid 1 tab PO DAILY 01/27/20 01/27/20 [Centrum Women Tablet] [place]-3 Fatty Acids [Fish Oil 1,000 mg PO DAILY 01/27/20 01/27/20 Concentrate] amLODIPine [Norvasc] 5 mg PO QPM 01/27/20 01/27/20 metHOTREXate sodium [Methotrexate] 7.5 mg PO Q7D 01/27/20 01/27/20 - Allergies Allergies/Adverse Reactions: Allergies Allergy/AdvReac Type Severity Reaction Status Date / Time Sulfa (Sulfonamide Allergy Hives Verified 02/11/20 23:19 Antibiotics) - Social History Does the pt smoke?: No Smoking Status: Never smoker Does the pt drink ETOH?: Yes Does the pt have substance abuse?: No - Immunizations Immunizations are current?: Yes - POLST Patient has POLST: No PD ED PE NORMAL - Vitals Vital signs reviewed: Yes - General General: Alert and oriented X 3, No acute distress, Well developed/nourished - HEENT HEENT: PERRL, EOMI - Cardiac Cardiac: RRR - Respiratory Respiratory: No respiratory distress, Clear bilaterally - Abdomen Abdomen: Soft, Non tender - Back Back: No CVA TTP - Neuro Neuro: Alert and oriented X 3, record cutter 2-12 intact, No motor deficit, No sensory deficit PD ED PE EXPANDED - Neuro Neuro: Other (some stuttering speech with mild difficulty in word-finding) Results - Vitals Vitals: Oxygen O2 Source Room air - EKG (time done) No standard instances Rate: Rate (enter#) (60) Rhythm: NSR [place]: LAD Intervals: Normal VT QRS: LVH Ischemia: Normal ST segments - Labs Labs: Laboratory Tests 02/11/20 02/11/20 23:25 23:25 WBC 11.0 H RBC 4.27 Hgb 13.6 Hct 39.2 MCV 91.8 MCH 31.9 H MCHC 34.7 RDW 13.0 Plt Count 220 MPV 10.0 Neut # (Auto) 7.0 H Lymph # (Auto) 2.7 Bucks # (Auto) 0.7 Eos # (Auto) 0.5 Baso # (Auto) 0.1 Absolute Nucleated RBC 0.00 Nucleated RBC % 0.0 Sodium 136 Potassium 3.4 L Chloride 103 Carbon Dioxide 25 Anion Gap 8.0 BUN 17 Creatinine 0.7 Estimated GFR (MDRD) 82 L Glucose 109 H Calcium 9.3 Total Bilirubin 0.8 AST 36 ALT 34 Alkaline Phosphatase 100 Total Protein 7.4 Albumin 4.4 Globulin 3.0 Albumin/Globulin Ratio 1.5 Lipase 48 - Rads (name of study) CTA head Radiology: Prelim report reviewed, See rad report PD MEDICAL DECISION MAKING - ED course Complexity details: reviewed old records, reviewed results, re-evaluated patient, considered differential, d/w patient Departure - Departure Disposition: 01 Home, Self Care Clinical Impression: Dizziness Condition: Good Instructions: ED Dizziness UKO Follow-Up: Andi Soares DO [Primary Care Provider] - Discharge Date/Time: 02/12/20 03:02
[2020-02-12] MEDS ORDERED: IOVERSOL 320 100 ML VIAL IVP ONE ×2 (01:27→01:54)
[2020-02-12 02:54] VITALS: BP 127/65
--- NOTE | 2020-02-12 08:23 | CT Report ---
PROCEDURE: ANGIO HEAD W/WO INDICATIONS: L sided facial droop CONTRAST: IV CONTRAST: Optiray 320 ml: 80 PO CONTRAST: *NO PO CONTRAST TECHNIQUE: Precontrast 4.5 mm thick angled axial sections acquired from the foramen magnum to the vertex. Afte r the administration of intravenous contrast, 1 mm thick sections acquired through the [place] of [place] is. Postcontrast 4.5 mm thick sections then re-acquired from the foramen magnum to the vertex. 3-di mensional gjbormj-mplfscfeb-dtbvvrocbc (MIP) and/or volume rendering reformats were acquired of the c entral intracranial vasculature. For radiation dose reduction, the following was used: automated ex posure control, adjustment of mA and/or kV according to patient size. COMPARISON: MRI brain 01/27/2020. CT angiogram head 01/26/2020. CT head 01/26/2020 FINDINGS: Image quality: Excellent. Anterior circulation: Intracranial internal carotid arteries are normal in flow. Atherosclerotic sunny cification noted in the cavernous and clinoid segments of the internal carotid arteries bilaterally. Atherosclerotic calcification causes a moderate, short segment stenosis of the clinoid segment of the right internal carotid artery. The flow within the paired anterior cerebral arteries is normal and symmetric. The flow within the middle cerebral arteries is normal and symmetric. The anterior commu nicating artery is seen. No aneurysms are seen. Posterior circulation: Visualized portions of the vertebral arteries demonstrate normal caliber, and join to form a normal appearing basilar artery. Flow within the posterior cerebral arteries is norm al and symmetric. No aneurysms are seen. Dural sinuses demonstrate normal postcontrast enhancement CSF spaces: Ventricles are normal in size and shape. Basal cisterns are patent. No extra-axial flu id collections. Brain: No midline shift. No intracranial bleeds or masses. Cavazos-white matter interface appears int act. Skull and face: Calvarium and facial bones appear intact, without suspicious lesions. Sinuses: Visualized sinuses and mastoids are clear. IMPRESSION: 1. No acute intracranial disease process. 2. No large vessel occlusion, hemodynamically significant vascular stenosis, vascular dissection or a neurysm. Reviewed by: Seble Tolentino MD, PhD on 02/12/2020 8:21 AM PDT Approved by: Seble Tolentino MD, PhD on 02/12/2020 8:21 AM PDT Station ID: [id number]
== END 2020-02-12 03:02 | disposition home or self-care (01) ==
LOC: ED 23:04
DX: R42 Dizziness and giddiness (principal); I69.320 Aphasia following cerebral infarction; H91.90 Unspecified hearing loss, unspecified ear; I10 Essential (primary) hypertension; Z79.02 Long term (current) use of antithrombotics/antiplatelets; Z79.82 Long term (current) use of aspirin
CPT/HCPCS: 36415; 70496; 80053; 83690; 85025; 93005; 99284; Q9967

== ENCOUNTER 2020-03-28 07:15 | Outpatient (CLI) | payer MEDICARE, OTHER ==
[2020-03-28 12:15] LABS: BASOPHILS # (AUTO) 0.1 10^3/uL (0.0-0.1); BASOPHILS % (AUTO) 0.8 %; EOSINOPHILS # (AUTO) 0.4 10^3/uL (0.0-0.7); EOSINOPHILS % (AUTO) 4.2 %; HGB - HEMOGLOBIN 13.7 g/dL (12.0-16.0); LYMPHOCYTES # (AUTO) 1.8 10^3/uL (1.5-3.5); LYMPHOCYTES % (AUTO) 21.3 %; MEAN CORPUSCULAR HEMOGLOBIN 30.9 pg (27.0-31.0); MEAN CORPUSCULAR HGB CONC 33.7 g/dL (32.0-36.0); MEAN CORPUSCULAR VOLUME 91.6 fL (81.0-99.0); MEAN PLATELET VOLUME 9.8 fL (7.9-10.8); MONOCYTES # (AUTO) 0.6 10^3/uL (0.0-1.0); MONOCYTES % (AUTO) 7.6 %; NEUTROPHILS # (AUTO) 5.5 10^3/uL (1.5-6.6); NEUTROPHILS % (AUTO) 65.9 %; PLT - PLATELET COUNT 233 10^3/uL (130-450); RED BLOOD COUNT 4.43 10^6/uL (4.20-5.40); RED CELL DISTRIBUTION WIDTH 13.2 % (12.0-15.0); WHITE BLOOD COUNT 8.4 x10^3/uL (4.8-10.8)
[2020-03-28 12:33] LABS: ALBUMIN 4.3 g/dL (3.2-5.5); ALBUMIN/GLOBULIN RATIO 1.4 (1.0-2.2); ALKALINE PHOSPHATASE 73 IU/L (42-121); ALT ALANINE AMINOTRANSFERASE 45 IU/L (10-60); AST ASPARTATE AMINOTRANSFERASE 46 IU/L (10-42); BUN - BLOOD UREA NITROGEN 11 mg/dL (6-20); CALCIUM 9.4 mg/dL (8.5-10.3); CARBON DIOXIDE - CO2 25 mmol/L (21-32); CHLORIDE 104 mmol/L (101-111); CHOL/HDL RATIO 1.8 (<4.4); CHOLESTEROL 92 mg/dL; CREATININE 0.6 mg/dL (0.4-1.0); GLUCOSE 97 mg/dL (70-100); HDL CHOLESTEROL 51 mg/dL; LDL CHOLESTEROL,CALCULATED 32 mg/dL; LDL/HDL RATIO 0.6 (<4.4); SODIUM 139 mmol/L (135-145); TOTAL PROTEIN 7.3 g/dL (6.7-8.2); VLDL CHOLESTEROL 9 mg/dL
== END 2020-03-28 23:59 | disposition home or self-care (01) ==
LOC: LAB.WCP 07:15
PROVIDERS: ATTEND Family Medicine
DX: I10 Essential (primary) hypertension (principal); I63.49 Cerebral infarction due to embolism of other cerebral artery; R79.9 Abnormal finding of blood chemistry, unspecified
CPT/HCPCS: 36415; 80053; 80061; 83721; 84443; 85025

== ENCOUNTER 2020-09-16 08:15 | Emergency (ER) | payer MEDICARE, OTHER ==
[2020-09-16 08:49] LABS: BASOPHILS # (AUTO) 0.1 10^3/uL (0.0-0.1); BASOPHILS % (AUTO) 0.9 %; EOSINOPHILS # (AUTO) 0.3 10^3/uL (0.0-0.7); EOSINOPHILS % (AUTO) 4.2 %; HCT - HEMATOCRIT 38.9 % (37.0-47.0); HGB - HEMOGLOBIN 13.4 g/dL (12.0-16.0); LYMPHOCYTES # (AUTO) 2.1 10^3/uL (1.5-3.5); LYMPHOCYTES % (AUTO) 26.5 %; MEAN CORPUSCULAR HGB CONC 34.4 g/dL (32.0-36.0); MONOCYTES # (AUTO) 0.6 10^3/uL (0.0-1.0); MONOCYTES % (AUTO) 7.2 %; NEUTROPHILS # (AUTO) 4.8 10^3/uL (1.5-6.6); NEUTROPHILS % (AUTO) 60.9 %; PLT - PLATELET COUNT 185 10^3/uL (130-450); RED BLOOD COUNT 4.32 10^6/uL (4.20-5.40); RED CELL DISTRIBUTION WIDTH 12.5 % (12.0-15.0); WHITE BLOOD COUNT 7.9 x10^3/uL (4.8-10.8)
--- OUTSIDE RECORDS SUMMARY | 2020-09-16 08:50 | EXTERNAL MEDICAL SUMMARY RPT | Continuity of Care Document ---
:1945 Demographics Phone Unavailable Preferred Language Unknown Marital Status Unknown [employer] Affiliation Unknown Race Unknown Ethnic Group Unknown Author Organization [facility] Address [address] [id number] Phone Social History date description facility [id number]
[2020-09-16 09:04] LABS: ALBUMIN 4.2 g/dL (3.2-5.5); ALBUMIN/GLOBULIN RATIO 1.5 (1.0-2.2); BILIRUBIN,TOTAL 0.7 mg/dL (0.2-1.0); CREATININE 0.7 mg/dL (0.4-1.0); POTASSIUM 3.6 mmol/L (3.5-5.0)
--- NOTE | 2020-09-16 09:09 | XRAY Report ---
PROCEDURE: Chest 1 View X-Ray INDICATIONS: Chest pain TECHNIQUE: One view of the chest was acquired. COMPARISON: 01/26/2020 FINDINGS: Surgical changes and devices: None. Lungs and pleura: No pleural effusions or pneumothorax. Lungs are clear. Mediastinum: Mediastinal contours appear normal. Heart size is normal. Bones and chest wall: No suspicious bony lesions. Overlying soft tissues appear unremarkable. IMPRESSION: No acute cardiopulmonary pathology. Reviewed by: Denilson Wong MD on 09/16/2020 9:08 AM PDT Approved by: Denilson Wong MD on 09/16/2020 9:08 AM PDT Station ID: [id number]
[2020-09-16] MEDS ORDERED: SODIUM CHLORIDE 0.9% 1,000 ML IV STA (09:44)
--- NOTE | 2020-09-16 09:46 | ED Physician Documentation ---
History of Present Illness - Stated complaint Stated Complaint: DIZZINESS - Chief complaint Chief Complaint: Cardiac - History obtained from History obtained from: Patient, Friend - History of Present Illness Timing: How many days ago (3) - Additonal information Additional information: 75-year-old female previously well has begun to develop some symptoms of diz ziness when she is up and walking around that is periodic. She denies specifically lightheadedness she denies any specific dizziness with moving her head. She does state that when she is sitting and doing nothing she really feels normal. She has not had any nausea with this and she is not otherwise ill. I did query her about her urination and she states that she did get up 3 times last night to urinate which is much more frequently than her usual 1 time. She also believes she might have decreased the amount that she is drinking in order to not have to get up at night to go to the bathroom. She is wondering about her medications the amlodipine and in September of a statin and whether taking these earlier in the day might prevent her from getting up at night to go to the bathroom. She has not had fever. Review of Systems Constitutional: denies: Fever Eyes: denies: Decreased vision Ears: denies: Ear pain Nose: denies: Rhinorrhea / runny nose, Congestion Throat: denies: Sore throat Cardiac: denies: Chest pain / pressure, Palpitations Respiratory: denies: Dyspnea, Cough GI: denies: Abdominal Pain, Nausea, Vomiting, Constipation, Diarrhea : reports: Frequency. 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 HEENT: None Psych: None Musculoskeletal: Rheumatoid arthritis Derm: None - Past Surgical History Past Surgical History: No - Present Medications Home Medications: Ambulatory Orders Medication Instructions Recorded Confirmed Ascorbic Acid [Vitamin C] 500 mg PO DAILY 01/27/20 09/16/20 Aspirin EC [Ecotrin] 81 mg PO DAILY #21 tablet 01/27/20 09/16/20 Atorvastatin [Lipitor] 40 mg PO QPM #30 tablet 01/27/20 09/16/20 Cholecalciferol [Vitamin D3] 25 mcg PO DAILY 01/27/20 09/16/20 Folic Acid 2 mg PO DAILY 01/27/20 09/16/20 Hydroxychloroquine Sulfate 200 mg PO DAILY 01/27/20 09/16/20 Multivitamin/Iron/Folic Acid 1 tab PO DAILY 01/27/20 09/16/20 [Centrum Women Tablet] Lignum-3 Fatty Acids [Fish Oil 1,000 mg PO DAILY 01/27/20 09/16/20 Concentrate] amLODIPine [Norvasc] 5 mg PO QPM 01/27/20 09/16/20 metHOTREXate sodium [Methotrexate] 7.5 mg PO Q7D 01/27/20 09/16/20 - Allergies Allergies/Adverse Reactions: Allergies Allergy/AdvReac Type Severity Reaction Status Date / Time lisinopril Allergy Unknown Verified 02/22/20 08:51 Sulfa (Sulfonamide Allergy Hives Verified 02/11/20 23:19 Antibiotics) sulfamethoxazole Allergy Unknown Verified 02/22/20 08:51 [From ] trimethoprim [From ] Allergy Unknown Verified 02/22/20 08:51 - Social History Does the pt smoke?: No Smoking Status: Never smoker Does the pt drink ETOH?: Yes Does the pt have substance abuse?: No - Immunizations Immunizations are current?: Yes - POLST Patient has POLST: No PD ED PE NORMAL - Vitals Vital signs reviewed: Yes (Hypertensive) - General General: Alert and oriented X 3, No acute distress, Well developed/nourished - HEENT HEENT: Atraumatic, PERRL, EOMI, Other (no nystagmus) - Neck Neck: Supple, no meningeal sign, No bony TTP - Cardiac Cardiac: RRR, No murmur - Respiratory Respiratory: No respiratory distress, Clear bilaterally - Abdomen Abdomen: Soft, Non tender - Back Back: No CVA TTP, No spinal TTP - Derm Derm: Normal color, Warm and dry, No rash - Extremities Extremities: No deformity, No edema - Neuro Neuro: Alert and oriented X 3, equity manager 2-12 intact, No motor deficit, No sensory deficit, Normal speech Eye Opening: Spontaneous Motor: Obeys Commands Verbal: Oriented GCS Score: 15 - Psych Psych: Normal mood, Normal affect Results - Vitals Vitals: Vital Signs - 24 hr 09/16/20 09/16/2021 08:27 09:07 10:02 Temperature 36.0 C L Heart Rate 59 L 53 L 56 L Respiratory 16 19 14 Rate Blood Pressure 131/111 H 124/67 136/80 H O2 Saturation 100 98 99 09/16/20 10:48 Temperature Heart Rate 58 L Respiratory 16 Rate Blood Pressure 140/70 H O2 Saturation 100 Oxygen O2 Source Room air - EKG (time done) 0829 Rate: Rate (enter#) (55) Ischemia: Normal ST segments Compare to prior EKG: Unchanged from prior EKG (SPT 03-09-2020 no sig changes) Computer interpretation: Agree with computer - Labs Labs: Laboratory Tests 09/16/20 09/16/20 09/16/20 08:45 08:45 08:45 WBC 7.9 RBC 4.32 Hgb 13.4 Hct 38.9 MCV 90.0 MCH 31.0 MCHC 34.4 RDW 12.5 Plt Count 185 MPV 9.0 Neut # (Auto) 4.8 Lymph # (Auto) 2.1 Tama # (Auto) 0.6 Eos # (Auto) 0.3 Baso # (Auto) 0.1 Absolute Nucleated RBC 0.00 Nucleated RBC % 0.0 Sodium 140 Potassium 3.6 Chloride 107 Carbon Dioxide 26 Anion Gap 7.0 BUN 15 Creatinine 0.7 Estimated GFR (MDRD) 82 L Glucose 93 Calcium 9.0 Total Bilirubin 0.7 AST 38 ALT 39 Alkaline Phosphatase 82 Troponin I High Sens 4.1 Total Protein 7.0 Albumin 4.2 Globulin 2.8 Albumin/Globulin Ratio 1.5 Lipase 33 Urine Color Urine Clarity Urine pH Ur Specific [place] Urine Protein Urine Glucose (UA) Urine Ketones Urine Occult Blood Urine Nitrite Urine Bilirubin Urine Urobilinogen Ur Leukocyte Esterase Ur Microscopic Review Urine Culture Comments 09/16/20 09:50 WBC RBC Hgb Hct MCV MCH MCHC RDW Plt Count MPV Neut # (Auto) Lymph # (Auto) Tama # (Auto) Eos # (Auto) Baso # (Auto) Absolute Nucleated RBC Nucleated RBC % Sodium Potassium Chloride Carbon Dioxide Anion Gap BUN Creatinine Estimated GFR (MDRD) Glucose Calcium Total Bilirubin AST ALT Alkaline Phosphatase Troponin I High Sens Total Protein Albumin Globulin Albumin/Globulin Ratio Lipase Urine Color YELLOW Urine Clarity CLEAR Urine pH 7.0 Ur Specific [place] 1.010 Urine Protein NEGATIVE Urine Glucose (UA) NEGATIVE Urine Ketones NEGATIVE Urine Occult Blood NEGATIVE Urine Nitrite NEGATIVE Urine Bilirubin NEGATIVE Urine Urobilinogen 0.2 (NORMAL) Ur Leukocyte Esterase NEGATIVE Ur Microscopic Review NOT INDICATED Urine Culture Comments NOT INDICATED Procedures - IVC sono (time) 0940 Bedside IVC sono: IVC measures (cm) (0.88), IVC collapsed c insp (cm) (complete), Dehydration (est 2 liter deficit) PD MEDICAL DECISION MAKING - ED course Complexity details: reviewed old records, reviewed results, re-evaluated patient, considered differential, d/w patient, d/w family ED course: 75-year-old female with a 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 She is found to be dehydrated on interrogation the inferior vena cava and she is administered normal saline. She does have a history of frequency of urination and a urine specimen is obtained to rule out infection. No evidence of infection today. Departure - Departure Disposition: 01 Home, Self Care Clinical Impression: Dehydration determined by examination Condition: Stable Instructions: ED Dehydration Follow-Up: Andi Soares DO [Primary Care Provider] -
[2020-09-16 10:00] LABS: BILIRUBIN,URINE NEGATIVE (NEGATIVE); GLUCOSE, URINE (UA) NEGATIVE (NEGATIVE); KETONES,URINE (UA) NEGATIVE (NEGATIVE); LEUKOCYTE ESTERASE, URINE NEGATIVE (NEGATIVE); NITRITE,URINE NEGATIVE (NEGATIVE); OCCULT BLOOD,URINE NEGATIVE (NEGATIVE); PROTEIN,URINE NEGATIVE (NEGATIVE); UROBILINOGEN,URINE 0.2 (NORMAL) E.U./dL (NORMAL)
[2020-09-16 10:02] LABS: CLARITY,URINE CLEAR (CLEAR)
[2020-09-16 10:49] VITALS: BP 140/70
== END 2020-09-16 11:13 | disposition home or self-care (01) ==
LOC: ED 08:15
DX: E86.0 Dehydration (principal); R42 Dizziness and giddiness; R35.0 Frequency of micturition; I10 Essential (primary) hypertension; Z86.73 Personal history of transient ischemic attack (TIA), and cerebral infarction without residual deficits; Z79.82 Long term (current) use of aspirin
CPT/HCPCS: 36415; 80053; 81001; 81003; 83690; 84484; 85025; 87086; 93005; 96360; 99284

== ENCOUNTER 2021-04-04 07:00 | Outpatient (CLI) | payer MEDICARE, OTHER ==
[2021-04-04 11:52] LABS: CHOLESTEROL 116 mg/dL; HDL CHOLESTEROL 59 mg/dL; LDL CHOLESTEROL,CALCULATED 45 mg/dL; LDL/HDL RATIO 0.8 (<4.4); TRIGLYCERIDES 59 mg/dL; VLDL CHOLESTEROL 12 mg/dL
== END 2021-04-04 23:59 | disposition home or self-care (01) ==
LOC: LAB.WCP 07:00
PROVIDERS: ATTEND Family Medicine
DX: E78.5 Hyperlipidemia, unspecified (principal)
CPT/HCPCS: 36415; 80061; 83721

== ENCOUNTER 2022-06-23 06:51 | Emergency (ER) | payer MEDICARE, OTHER ==
[2022-06-23] MEDS ORDERED: KETOROLAC 30 MG/ML VIAL IVP STA (07:53)
--- NOTE | 2022-06-23 07:56 | ED Physician Documentation ---
PD HPI CHEST PAIN - Stated complaint Stated Complaint: CHEST DISCOMFORT - Chief complaint Chief Complaint: Cardiac - History obtained from History obtained from: Patient - History of Present Illness Timing - onset: How many days ago (4) Timing - onset during: Rest Timing - duration: Days (4) Timing - details: Gradual onset, Still present, Waxing and waning Pain level max: 4 Pain level now: 3 Quality: Pressure, Sharp, Pain Location: Left chest Radiation: No: Jaw, Neck, Back, Abdominal, Left upper extremity, Right upper extremity Improved by: Rest Worsened by: Inspiration, Palpation, Position Associated symptoms: No: Shortness of air, Diaphoresis, Nausea, Vomiting, Feeling faint / dizzy, General Weakness, Palpitations, Cough Similar symptoms before: Has not had sx before Recently seen: Not recently seen - Additional information Additional information: 77-year-old female with a history of rheumatoid arthritis as developed pain in her chest which she feels is in her chest wall. She has pain if she moves around she has pain at rest when she is laying down she does not recall any injury to her chest wall. She has not had a cough or congestion. She has not recently been ill. She is getting ready to go on her trip and wanted to check this out to make certain it was not her heart. She has been experiencing symptoms for the past 3 to 4 days. Review of Systems Constitutional: denies: Fever Cardiac: reports: Chest pain / pressure. denies: Palpitations Respiratory: denies: Dyspnea, Cough, Wheezing GI: denies: Abdominal Pain, Nausea, Vomiting, Constipation, Diarrhea : denies: Dysuria, Frequency PD PAST MEDICAL HISTORY - Past Medical History Past Medical History: Yes Cardiovascular: Hypertension, High cholesterol Respiratory: None Neuro: CVA Endocrine/Autoimmune: None GI: None CLINICAL COURIER: None HEENT: None Psych: None Musculoskeletal: Rheumatoid arthritis Derm: None - Past Surgical History Past Surgical History: No - Present Medications Home Medications: Ambulatory Orders Medication Instructions Recorded Confirmed Atorvastatin [Lipitor] 40 mg PO QPM #30 tablet 01/27/20 06/23/22 metHOTREXate sodium [Methotrexate] 7.5 mg PO Q7D 01/27/20 06/23/22 Lisinopril [Zestril] 2.5 mg PO DAILY 06/23/22 06/23/22 - Allergies Allergies/Adverse Reactions: Allergies Allergy/AdvReac Type Severity Reaction Status Date / Time lisinopril Allergy Unknown Verified 06/23/22 07:05 Sulfa (Sulfonamide Allergy Hives Verified 06/23/22 07:05 Antibiotics) sulfamethoxazole Allergy Unknown Verified 06/23/22 07:05 [From ] trimethoprim [From ] Allergy Unknown Verified 06/23/22 07:05 - Social History Does the pt smoke?: No Smoking Status: Never smoker Does the pt drink ETOH?: Yes Does the pt have substance abuse?: No - Immunizations Immunizations are current?: Yes - POLST Patient has POLST: No PD ED PE NORMAL - Vitals Vital signs reviewed: Yes (hypertensive ) - General General: Alert and oriented X 3, No acute distress, Well developed/nourished - HEENT HEENT: Atraumatic, PERRL, EOMI - Neck Neck: Supple, no meningeal sign, No bony TTP - Cardiac Cardiac: RRR, No murmur - Respiratory Respiratory: No respiratory distress, Clear bilaterally, Other (Pain to palpation of the anterior chest wall along the sternal border reproduces the pain the patient is experiencing) - Abdomen Abdomen: Soft, Non tender - Back Back: No CVA TTP, No spinal TTP - Derm Derm: Normal color, Warm and dry, No rash - Extremities Extremities: No deformity, No edema - Neuro Neuro: Alert and oriented X 3, foundry operator 2-12 intact, No motor deficit, No sensory deficit, Normal speech Eye Opening: Spontaneous Motor: Obeys Commands Verbal: Oriented GCS Score: 15 - Psych Psych: Normal mood, Normal affect Results - Vitals Vitals: Vital Signs - 24 hr 06/23/22 06/23/22 06/23/22 07:15 07:54 09:16 Temperature 36.6 C Heart Rate 69 67 63 Respiratory 12 20 18 Rate Blood Pressure 167/96 H 135/73 H 131/77 H O2 Saturation 99 100 98 Oxygen O2 Source Room air - EKG (time done) 0701 Rate: Rate (enter#) (66) QRS: LVH Compare to prior EKG: Changed from prior EKG (SPT 09-16-20 voltage is slightly higher) Computer interpretation: Agree with computer - Labs Labs: Laboratory Tests 06/23/22 06/23/22 06/23/22 07:02 07:02 07:02 WBC 10.0 RBC 4.72 Hgb 14.1 Hct 41.6 MCV 88.1 MCH 29.9 MCHC 33.9 RDW 13.3 Plt Count 255 MPV 9.5 Neut # (Auto) 6.1 Lymph # (Auto) 2.6 [place] # (Auto) 0.8 Eos # (Auto) 0.4 Baso # (Auto) 0.1 Absolute Nucleated RBC 0.00 Nucleated RBC % 0.0 Sodium 136 Potassium 3.8 Chloride 102 Carbon Dioxide 26 Anion Gap 8.0 BUN 14 Creatinine 0.7 Estimated GFR (MDRD) 81 L Glucose 109 H Calcium 9.2 Total Bilirubin 0.9 AST 31 ALT 30 Alkaline Phosphatase 103 Troponin I High Sens 4.9 Total Protein 7.5 Albumin 4.4 Globulin 3.1 Albumin/Globulin Ratio 1.4 Lipase 51 - Rads (name of study) chest Radiology: Prelim report reviewed (Impression: No acute cardiopulmonary pathology.) Procedures - IVC sono (time) 0750 Bedside IVC sono: IVC measures (cm) (1.66), Euvolemia PD Medical Decision Making - ED course Complexity details: reviewed old records, reviewed results, re-evaluated patient, considered differential, d/w patient, d/w family Reviewed Lab Results: We reviewed the patient's complete blood cell count with a normal white blood cell count hemoglobin, hematocrit and platelets. We reviewed chemistries with normal electrolytes kidney and liver function. A sensitive troponin was normal. A chest x-ray was without evidence of infiltrate effusion or fractures. ED course: 77-year-old female presents to the Emergency Department with left anterior chest pain that is reproducible with palpation of the chest wall.. We felt compelled to complete a cardiac work-up on this patient as she is leaving on vacation and wanted to make certain she was not having a heart attack. We gained IV access and obtain blood, did an electrocardiogram and chest x-ray for evaluation. We did not find any evidence of a heart attack. We did find evidence of chest wall pain. She was treated with dexamethasone and Toradol with improvement. She was discharged to home. Departure - Departure Disposition: 01 Home, Self Care Clinical Impression: Acute costochondritis Condition: Stable Instructions: ED Chest Pain Costochondritis Follow-Up: Patt Garces PA [Primary Care Provider] - Comments: Ethel, today it looks like the pain you are having in your chest is in your chest wall and does not involve your heart. Anti-inflammatories like Aleve or ibuprofen will be helpful if the pain requires it. Make certain you take this with food if you need to take it. Our expectation is resolution of your symptoms within the week. This type of pain usually happens from either a minor injury to the chest or excessive use of the chest wall and sometimes just from a virus. We found no indication that this would not resolve in the usual period of time which is about 7 to 10 days. Discharge Date/Time: 06/23/22 09:16
[2022-06-23 08:00] LABS: BASOPHILS # (AUTO) 0.1 10^3/uL (0.0-0.1); BASOPHILS % (AUTO) 0.8 %; EOSINOPHILS # (AUTO) 0.4 10^3/uL (0.0-0.7); EOSINOPHILS % (AUTO) 4.4 %; HCT - HEMATOCRIT 41.6 % (37.0-47.0); HGB - HEMOGLOBIN 14.1 g/dL (12.0-16.0); LYMPHOCYTES # (AUTO) 2.6 10^3/uL (1.5-3.5); MEAN CORPUSCULAR HEMOGLOBIN 29.9 pg (27.0-31.0); MEAN CORPUSCULAR HGB CONC 33.9 g/dL (32.0-36.0); MEAN CORPUSCULAR VOLUME 88.1 fL (81.0-99.0); MEAN PLATELET VOLUME 9.5 fL (7.9-10.8); MONOCYTES # (AUTO) 0.8 10^3/uL (0.0-1.0); NEUTROPHILS # (AUTO) 6.1 10^3/uL (1.5-6.6); NEUTROPHILS % (AUTO) 60.5 %; PLT - PLATELET COUNT 255 10^3/uL (130-450); RED BLOOD COUNT 4.72 10^6/uL (4.20-5.40); RED CELL DISTRIBUTION WIDTH 13.3 % (12.0-15.0)
[2022-06-23 08:17] LABS: ALBUMIN 4.4 g/dL (3.2-5.5); ALBUMIN/GLOBULIN RATIO 1.4 (1.0-2.2); BILIRUBIN,TOTAL 0.9 mg/dL (0.2-1.0); CALCIUM 9.2 mg/dL (8.5-10.3); CREATININE 0.7 mg/dL (0.4-1.0); POTASSIUM 3.8 mmol/L (3.5-5.0); TOTAL PROTEIN 7.5 g/dL (6.7-8.2)
--- NOTE | 2022-06-23 08:24 | XRAY Report ---
PROCEDURE: Chest 1 View X-Ray INDICATIONS: chest pain TECHNIQUE: One view of the chest was acquired. COMPARISON: 09/16/2020. FINDINGS: Surgical changes and devices: None. Lungs and pleura: No pleural effusions or pneumothorax. Lungs are clear. Mediastinum: Mediastinal contours appear normal. Heart size is normal. Bones and chest wall: No suspicious bony lesions. Overlying soft tissues appear unremarkable. IMPRESSION: No acute cardiopulmonary pathology. Reviewed by: Denilson Wong MD on 06/23/2022 8:22 AM [facility] Approved by: Denilson Wong MD on 06/23/2022 8:22 AM [facility] Station ID: [id number]
[2022-06-23 09:17] VITALS: BP 131/77
== END 2022-06-23 09:16 | disposition home or self-care (01) ==
LOC: ED 06:51
DX: M94.0 Chondrocostal junction syndrome [Tietze] (principal)
CPT/HCPCS: 36415; 80053; 83690; 84484; 85025; 93005; 96374; 99284

== ENCOUNTER 2022-07-10 08:27 | Outpatient (CLI) | payer MEDICARE ==
--- NOTE | 2022-07-11 11:27 | Mammography Report ---
BILATERAL DIGITAL SCREENING MAMMOGRAM 3D/2D: 07/10/2022 CLINICAL: Routine screening. Comparison is made to exams dated: 08/25/2019 mammogram, 08/18/2018 mammogram, 05/30/2016 ultrasound b iopsy, 05/30/2016 mammogram, 05/17/2016 ultrasound, and 05/17/2016 mammogram - [facility] nter. There are scattered areas of fibroglandular density in both breasts (category b / 25%-50% glandular t issue). No significant masses, calcifications, or other findings are seen in either breast. There has been no significant interval change. IMPRESSION: NEGATIVE There is no mammographic evidence of malignancy. A 1 year screening mammogram is recommended. Based on the Tyrer Cuzick model (a risk assessment model) the patients lifetime risk is 4.1% and her 10 year risk is 0.0%. According to the ACR, ACS, and NCCN guidelines, an annual breast MRI exam cammy g with mammogram is recommended if the patients lifetime risk is 20% or greater. This exam was interpreted at Station ID: [id number]. NOTE: For mammograms, a report in lay terms will be sent to the patient. Approximately 15% of breast malignancies will not be visualized mammographically. In the management of a palpable breast mass, a negative mammogram must not discourage biopsy of a clinically suspicious lesion. Electronically Signed By: Benjie Garcia M.D. [email or web address]:07/10/2022 10:05:51 ACR BI-RADS Category 1: Negative 3341F PARENCHYMAL PATTERN: (A) - The breast(s) demonstrate(s) scattered fibroglandular densities. BI-RADS CATEGORY: (1) - 1 RECOMMENDATION: (ANNUAL) - Recommend routine annual screening mammography. [id number] 1 year screening LATERALITY: (B)
== END 2022-07-10 08:28 | disposition home or self-care (01) ==
LOC: DI.N 08:27
DX: Z12.31 Encounter for screening mammogram for malignant neoplasm of breast (principal)

== ENCOUNTER 2022-09-26 09:11 | Outpatient (CLI) | payer MEDICARE ==
--- NOTE | 2022-09-26 11:06 | XRAY Report ---
PROCEDURE: Shoulder 2 View RT INDICATIONS: PAIN IN RIGHT SHOULDER TECHNIQUE: 2 views of the shoulder were acquired. COMPARISON: None. FINDINGS: Bones: No fractures or dislocations. No suspicious bony lesions. Moderate degenerative changes are present at the acromioclavicular joint. Visualized ribs appear intact. Soft tissues: No suspicious soft tissue calcifications. IMPRESSION: No acute bony abnormality. Degenerative change. Reviewed by: Danielle Wright MD on 09/26/2022 11:04 AM PDT Approved by: Danielle Wright MD on 09/26/2022 11:04 AM PDT Station ID: [id number]
--- NOTE | 2022-09-26 11:07 | XRAY Report ---
PROCEDURE: Hips 2V BILAT INDICATIONS: PAIN IN RIGHT HIP TECHNIQUE: 2 views of the hip were acquired. COMPARISON: None. FINDINGS: Bones: No acute fracture or dislocation. There is moderate right and mild left hip joint space narro wing. Small collar osteophytes are present. Soft tissues: A large left and a small right calcified uterine fibroid are noted. 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 Reviewed by: Danielle Wright MD on 09/26/2022 11:06 AM PDT Approved by: Danielle Wright MD on 09/26/2022 11:06 AM PDT Station ID: [id number]
== END 2022-09-26 09:12 | disposition home or self-care (01) ==
LOC: DI 09:11
PROVIDERS: ATTEND Physician Assistant
DX: M19.011 Primary osteoarthritis, right shoulder (principal); M16.0 Bilateral primary osteoarthritis of hip

== ENCOUNTER 2023-09-04 07:26 | Outpatient (CLI) | payer MEDICARE ==
[2023-09-04 11:55] LABS: BASOPHILS # (AUTO) 0.1 10^3/uL (0.0-0.1); BASOPHILS % (AUTO) 0.8 %; EOSINOPHILS # (AUTO) 0.4 10^3/uL (0.0-0.7); EOSINOPHILS % (AUTO) 4.4 %; HCT - HEMATOCRIT 42.4 % (37.0-47.0); HGB - HEMOGLOBIN 13.8 g/dL (12.0-16.0); LYMPHOCYTES # (AUTO) 2.2 10^3/uL (1.5-3.5); LYMPHOCYTES % (AUTO) 24.6 %; MEAN CORPUSCULAR HEMOGLOBIN 29.2 pg (27.0-31.0); MEAN CORPUSCULAR HGB CONC 32.5 g/dL (32.0-36.0); MEAN CORPUSCULAR VOLUME 89.8 fL (81.0-99.0); MEAN PLATELET VOLUME 9.6 fL (7.9-10.8); MONOCYTES # (AUTO) 0.6 10^3/uL (0.0-1.0); MONOCYTES % (AUTO) 6.3 %; NEUTROPHILS # (AUTO) 5.6 10^3/uL (1.5-6.6); NEUTROPHILS % (AUTO) 63.8 %; PLT - PLATELET COUNT 252 10^3/uL (130-450); RED BLOOD COUNT 4.72 10^6/uL (4.20-5.40); RED CELL DISTRIBUTION WIDTH 13.3 % (12.0-15.0); WHITE BLOOD COUNT 8.9 x10^3/uL (4.8-10.8)
[2023-09-04 12:36] LABS: ALBUMIN 4.3 g/dL (3.2-5.5); ALBUMIN/GLOBULIN RATIO 1.5 (1.0-2.2); ALKALINE PHOSPHATASE 86 IU/L (42-121); ALT ALANINE AMINOTRANSFERASE 32 IU/L (10-60); AST ASPARTATE AMINOTRANSFERASE 34 IU/L (10-42); BILIRUBIN,TOTAL 0.8 mg/dL (0.2-1.0); BUN - BLOOD UREA NITROGEN 15 mg/dL (6-20); CALCIUM 9.9 mg/dL (8.5-10.3); CARBON DIOXIDE - CO2 27 mmol/L (21-32); CHLORIDE 103 mmol/L (101-111); CHOL/HDL RATIO 2.5 (<4.4); CHOLESTEROL 96 mg/dL; CREATININE 0.8 mg/dL (0.6-1.3); GFR - MDRD 70 (>89); GLUCOSE 97 mg/dL (74-104); HDL CHOLESTEROL 39 mg/dL; LDL CHOLESTEROL,CALCULATED 38 mg/dL; POTASSIUM 4.1 mmol/L (3.5-4.5); SODIUM 136 mmol/L (135-145); TOTAL PROTEIN 7.1 g/dL (6.4-8.9); TRIGLYCERIDES 96 mg/dL (48-352); VLDL CHOLESTEROL 19 mg/dL
== END 2023-09-04 07:27 | disposition home or self-care (01) ==
LOC: LAB.N 07:26
PROVIDERS: ATTEND Physician Assistant
DX: E78.5 Hyperlipidemia, unspecified (principal); R14.0 Abdominal distension (gaseous)
CPT/HCPCS: 36415; 80053; 80061; 83721; 84443; 85025

== ENCOUNTER 2023-09-19 08:27 | Outpatient (CLI) | payer MEDICARE ==
--- NOTE | 2023-09-20 08:38 | Mammography Report ---
BILATERAL DIGITAL SCREENING MAMMOGRAM 3D/2D: 09/19/2023 CLINICAL: Routine screening. Comparison is made to exams dated: 07/10/2022 mammogram, 08/25/2019 mammogram, 08/18/2018 mammogram, ultrasound biopsy, 05/30/2016 mammogram, and 05/17/2016 ultrasound - [facility] nter. Both breasts are almost entirely fatty (category a/<25% glandular tissue). There is a biopsy clip in the right breast. No significant masses, calcifications, or other findings are seen in either breast. There has been no significant interval change. IMPRESSION: NEGATIVE There is no mammographic evidence of malignancy. A 1 year screening mammogram is recommended. Based on the Tyrer Cuzick model (a risk assessment model) the patient's lifetime risk is 2.4% and her 10 year risk is 0.0%. According to the ACR, ACS, and NCCN guidelines, an annual breast MRI exam cammy g with mammogram is recommended if the patient's lifetime risk is 20% or greater. This exam was interpreted at Station ID: [id number]. NOTE: For mammograms, a report in lay terms will be sent to the patient. Approximately 15% of breast malignancies will not be visualized mammographically. In the management of a palpable breast mass, a negative mammogram must not discourage biopsy of a clinically suspicious lesion. Electronically Signed By: Shruti [email or web address]:09/19/2023 12:36:46 letter sent: No_Letter ACR BI-RADS Category 1: Negative 3341F PARENCHYMAL PATTERN: (F) - The breast(s) demonstrate(s) diffuse fatty replacement. BI-RADS CATEGORY: (1) - 1 RECOMMENDATION: (ANNUAL) - Recommend routine annual screening mammography. [id number] 1 year screening LATERALITY: (B)
== END 2023-09-19 08:28 | disposition home or self-care (01) ==
LOC: DI.N 08:27
DX: Z12.31 Encounter for screening mammogram for malignant neoplasm of breast (principal)

== ENCOUNTER 2023-12-03 13:44 | Outpatient (CLI) | payer MEDICARE ==
--- NOTE | 2023-12-03 16:19 | DEXA Report ---
PROCEDURE: Dexa Spine and/or Hip INDICATIONS: POST MENOPAUSAL TECHNIQUE: Dual energy x-ray absorptiometry (DXA) was performed on a [employer] System. Regions measur ed are the AP Spine, femoral neck, and if needed forearm. COMPARISON: 06/17/2018 FINDINGS: Lumbar Spine: Bone Mineral Density: 1.906 g/cm/cm,T score: 6.1. Since the most recent prior study, there has been a statistically significant decrease in bone mineral density by 2.5 percent. Left Femoral Neck: Bone Mineral Density: 0.985 g/cm/cm, T score: -0.4. Left Hip: Bone Mineral Density: 1.179 g/cm/cm,T score: 1.4. Since the most recent prior study, there has been a statistically significant decrease in bone mineral density by 3 percent. (T score greater or equal to -1.0: NORMAL) (T score from -1.1 to -2.4: OSTEOPENIA) (T score less than or equal to -2.5 to: OSTEOPOROSIS) Impression: By WHO criteria, this patient has low bone density (osteopenia). Interval statistical decrease in bone mineral density of the lumbar spine. Interval statistical decre ase in bone mineral density of the hip. Patients with diagnosis of osteoporosis or osteopenia should have regular bone mineral density assess ment. For those eligible for Medicare, routine testing is allowed once every 2 years. Testing frequ ency can be increased for patients who have rapidly progressing disease or for those who are receivin g medical therapy to restore bone mass. Reviewed by: Addison Fernando MD on 12/03/2023 4:17 PM PDT Approved by: Addison Fernando MD on 12/03/2023 4:17 PM PDT Station ID: [id number]
== END 2023-12-03 13:45 | disposition home or self-care (01) ==
LOC: DI 13:44
PROVIDERS: ATTEND Family Medicine
DX: Z78.0 Asymptomatic menopausal state (principal)